=== PATIENT | male | born 2000 | race Caucasian/White ===

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

== ENCOUNTER 2023-06-06 21:43 | Emergency (ER) | payer BC, MEDICAID ==
--- NOTE | 2023-06-06 22:07 | NUR ---
Patient BIB police for med clearance as [facility] refused to take him w/o it, because he was in a fender [place]? The officer gave him a ticket and let him go. Patient advised he does not need to be seen and just will call for a ride.
== END 2023-06-07 00:44 | disposition left against medical advice (07) ==
LOC: ER 21:43
DX: Z00.8 Encounter for other general examination (principal); Z53.21 Procedure and treatment not carried out due to patient leaving prior to being seen by health care provider